=== PATIENT | male | born 1935 | race Caucasian/White ===

== ENCOUNTER 2024-03-31 17:38 | Emergency (ER) | payer MEDICARE, OTHER ==
[~2024-03-31] VITALS: Ht 165.1 cm; Wt 68.0 kg
[2024-03-31] MEDS ORDERED: ELIQUIS (17:49)
[2024-03-31] MEDS ORDERED: AMLODIPINE (17:49)
[2024-03-31 18:52] LABS: BASOPHILS % (AUTO) 0.1 % (0.0-2.0); HEMATOCRIT 46.9 % (36.7-47.1); LYMPHOCYTES # (AUTO) 0.4 K/uL (0.8-4.8); LYMPHOCYTES % (AUTO) 3.3 % (20.5-51.5); MEAN CORPUSCULAR HEMOGLOBIN 31.8 uug (23.8-33.4); MEAN CORPUSCULAR HGB CONC 34 g/dL (32.5-36.3); MEAN CORPUSCULAR VOLUME 93.1 fL (73.0-96.2); MONOCYTES # (AUTO) 0.5 K/uL (0.1-1.30); NEUTROPHILS # (AUTO) 11.9 K/uL (1.8-8.9); NEUTROPHILS % (AUTO) 92.6 % (38.5-71.5); PLATELET COUNT (AUTO) 210 K/uL (152-348); RED BLOOD CELL COUNT(AUTO) 5.03 MIL/uL (4.06-5.63); RED CELL DISTRIBUTION WIDTH 12.3 % (12.1-16.2); WHITE BLOOD COUNT (AUTO) 12.9 K/uL (3.6-10.2)
[2024-03-31 18:53] LABS: DIFFERENTIAL COMMENT 1
[2024-03-31] MEDS ORDERED: IOHEXOL 350 100 ML INFUS..BTL ONE (18:55)
[2024-03-31] MEDS ORDERED: IV NORMAL SALINE 250 ML IV ONE (18:55)
[2024-03-31] MEDS ORDERED: SWABABLE VALVE TRANSFER SET EA MC ONE (18:55)
[2024-03-31 19:02] LABS: CALCIUM 9.7 mg/dL (8.5-10.1); CARBON DIOXIDE 23 mmol/L (21-32); CHLORIDE 100 mmol/L (98-107); CREATININE 1.4 mg/dL (0.6-1.3); GLUCOSE 314 mg/dL (74-106); POTASSIUM 3.8 mmol/L (3.5-5.1); SODIUM SERUM 137 mmol/L (136-145); UREA NITROGEN, BLOOD 34 mg/dL (7-18)
[2024-03-31] MEDS: ONDANSETRON 4 MG/2 ML VIAL IV ONE (19:17)
[2024-03-31] MEDS ORDERED: ONDANSETRON 4 MG/2 ML VIAL ONE (19:17)
[2024-03-31] MEDS ORDERED: ASPIRIN 81 MG TAB.CHEW PO ONE (20:15)
[2024-03-31 20:49] VITALS: BP 141/118; TEMP 98; O2SAT 97
== END 2024-03-31 20:49 | disposition left against medical advice (07) ==
LOC: ER 17:49
DX: R42 Dizziness and giddiness (principal); R03.0 Elevated blood-pressure reading, without diagnosis of hypertension; I48.91 Unspecified atrial fibrillation; E11.65 Type 2 diabetes mellitus with hyperglycemia; I65.23 Occlusion and stenosis of bilateral carotid arteries; I67.82 Cerebral ischemia; E78.5 Hyperlipidemia, unspecified; Z79.01 Long term (current) use of anticoagulants
CPT/HCPCS: 99291; 70496; 96374; 80048; 82962; 84443; 85025; 85730; 84484; 36415; 70498; 93005; 70450; J2405; Q9967; A4606; A4663